=== PATIENT | female | born 1950 | race Two or more races ===

== ENCOUNTER 2018-07-15 01:02 | Emergency (ER) | payer OTHER ==
[~2018-07-15] VITALS: Ht 154.9 cm; Wt 69.9 kg
[2018-07-15] MEDS ORDERED: MOBIC15 MG PO (06:20)
== END 2018-07-15 06:43 | disposition home or self-care (01) ==
LOC: ER 01:02
DX: M25.512 Pain in left shoulder (principal)

== ENCOUNTER 2021-01-05 00:21 | Emergency (ER) | payer OTHER ==
[~2021-01-05] VITALS: Ht 157.5 cm; Wt 72.6 kg
[~2021-01-05 00:21] MED LIST: MOBIC15 MG PO
[2021-01-05] MEDS ORDERED: ZESTRIL40 M1 (00:44)
[2021-01-05] MEDS ORDERED: ZESTRIL20 MG (00:44)
[2021-01-05] MEDS ORDERED: LIPOFEN150 MG (00:45)
[2021-01-05] MEDS ORDERED: ORPHENADRINE C100 MG PO (03:17)
[2021-01-05] MEDS ORDERED: KETO10TA2 PO (03:17)
== END 2021-01-05 06:40 | disposition home or self-care (01) ==
LOC: ER 00:21
DX: M54.5 Low back pain (principal)

== ENCOUNTER 2021-07-18 21:25 | Emergency (ER) | payer OTHER ==
[~2021-07-18] VITALS: Ht 157.5 cm; Wt 73.5 kg
[~2021-07-18 21:25] MED LIST changes: +KETO10TA2 PO; +LIPOFEN150 MG; +ORPHENADRINE C100 MG PO; +ZESTRIL20 MG; +ZESTRIL40 M1
[2021-07-19] MEDS ORDERED: MOBIC15 MG PO (05:14)
[2021-07-19] MEDS ORDERED: CEPHALEXIN500 MG PO (05:14)
== END 2021-07-19 05:08 | disposition home or self-care (01) ==
LOC: ER 21:25
DX: N39.0 Urinary tract infection, site not specified (principal); R31.29 Other microscopic hematuria; K43.9 Ventral hernia without obstruction or gangrene; K57.30 Diverticulosis of large intestine without perforation or abscess without bleeding; K76.0 Fatty (change of) liver, not elsewhere classified; R10.11 Right upper quadrant pain